=== PATIENT | male | born 1955 | race African-American/Black ===

== ENCOUNTER 2021-04-20 05:59 | Emergency (ER) | payer OTHER ==
[~2021-04-20] VITALS: Ht 185.4 cm; Wt 86.2 kg
[2021-04-20] MEDS ORDERED: GABAPENTIN600 M1 PO (06:27)
[2021-04-20] MEDS ORDERED: RAYOS5 MG PO (06:28)
[2021-04-20] MEDS ORDERED: AMITRIPTYLINE H50 M2 PO (06:30)
[2021-04-20] MEDS ORDERED: LEVOTHYROXINE50 MC1 PO (06:31)
[2021-04-20] MEDS ORDERED: BRIMONIDINE 0.110 ML LT. EYE (06:31)
[2021-04-20] MEDS ORDERED: HUMALOG100 UNIT/1 SUBQ (06:33)
[2021-04-20 07:07] LABS: HEMATOCRIT 37.2 % (42.0-52.0); HEMOGLOBIN 12.3 gm/dL (14.0-18.0); MCH 35.8 pg (26.0-34.0); MCV 108.3 fL (80.0-100.0); RBC 3.44 mil/uL (4.50-6.00); RDW 14.5 % (10.5-14.5); WBC 10.3 thou/uL (4.0-11.0)
[2021-04-20 07:20] LABS: CALCIUM 8.8 mg/dL (8.5-10.1); CREATININE 1.3 mg/dL (0.7-1.3); POTASSIUM 4.4 mmol/L (3.5-5.1)
[2021-04-20 07:26] LABS: ALBUMIN 3.7 g/dL (3.4-5.0); TOTAL BILIRUBIN 1.2 mg/dL (0.2-1.0); TOTAL PROTEIN 6.9 g/dL (6.4-8.2)
[2021-04-20 09:55] VITALS: BP 180/93
== END 2021-04-20 09:56 | disposition home or self-care (01) ==
LOC: ER 05:59
PROVIDERS: Student in an Organized Health Care Education/Training Program
DX: S20.229A Contusion of unspecified back wall of thorax, initial encounter (principal); R10.84 Generalized abdominal pain; E11.9 Type 2 diabetes mellitus without complications; I10 Essential (primary) hypertension; Z98.890 Other specified postprocedural states; Z79.899 Other long term (current) drug therapy; Z79.4 Long term (current) use of insulin; W10.8XXA Fall (on) (from) other stairs and steps, initial encounter; Y93.89 Activity, other specified; Y92.89 Other specified places as the place of occurrence of the external cause; Y99.8 Other external cause status